=== PATIENT | male | born 1995 | race Caucasian/White ===

== ENCOUNTER 2017-03-04 19:31 | Emergency (ER) | payer OTHER ==
[2017-03-04 19:36] VITALS: RESP 16
[2017-03-04] MEDS ORDERED: ONDANSETRON 4 MG/2 ML VIAL IVP ONE (19:52)
[2017-03-04] MEDS ORDERED: NS 1,000 ML IV ONE (19:52)
--- NOTE | 2017-03-04 19:52 | EDPHY ---
H & P Stated Complaint: RLQ abd pain with emesis Time Seen by Provider: 03/04/17 19:51 HPI/ROS: CHIEF COMPLAINT: Abdominal pain, vomiting HISTORY OF PRESENT ILLNESS: The patient presents to the ED with progressively worsening right-sided abdominal pain for the past day. The patient reports that he had a fair amount of alcohol to drink last night. The patient denies prior history of abdominal pain. He denies prior history of abdominal surgery. He complains of moderate right mid and lower abdominal pain. The patient did have several episodes of vomiting today. He denies hematemesis or melena. The patient denies hematuria or dysuria. The patient reportedly did have a fall last night which resulted in a mild left knee injury. REVIEW OF SYSTEMS: A comprehensive 10 point review of systems is otherwise negative aside from elements mentioned in the history of present illness. Source: Patient - Personal History Current Tetanus/Diphtheria Vaccine: Yes Current Tetanus Diphtheria and Acellular Pertussis (TDAP): Yes - Medical/Surgical History Hx Asthma: No Hx Chronic Respiratory Disease: No Hx Diabetes: No Hx Cardiac Disease: No Hx Renal Disease: No Hx Cirrhosis: No Hx Alcoholism: No Hx HIV/AIDS: No Hx Splenectomy or Spleen Trauma: No Other PMH: N/A - Social History Smoking Status: Never smoked - Physical Exam Exam: General Appearance: Alert, mild discomfort Eyes: Pupils equal and round no pallor or injection ENT, Mouth: Mucous membranes moist Respiratory: There are no retractions, lungs are clear to auscultation Cardiovascular: Regular rate and rhythm Gastrointestinal: Tenderness to palpation right mid quadrant, right lower quadrant, right CVA tenderness Neurological: A&O, normal motor function, normal sensory exam, normal cranial nerves Skin: Warm and dry, no rashes Musculoskeletal: Neck is supple nontender Extremities: Tenderness to palpation left knee Psychiatric: Patient is oriented X 3, there is no agitation Constitutional: Initial Vital Signs Temperature (C) 36.3 C 03/04/17 19:35 Heart Rate 78 03/04/17 19:35 Respiratory Rate 16 03/04/17 19:35 Blood Pressure 126/85 H 03/04/17 19:35 O2 Sat (%) 97 03/04/17 19:35 O2 Delivery Mode Room Air Allergies/Adverse Reactions: No Known Allergies Allergy (Unverified 03/04/17 19:37) Home Medications: Medication Instructions Recorded NK [No Known Home Meds] 03/04/17 Medical Decision Making - Diagnostics Imaging Results: Imaging Impressions Knee X-Ray 03/04/17 20:05 Impression: Normal left knee series. Abdomen CT 03/04/17 21:10 Impression: 1. Mildly thickened appendix in the right upper iliac fossa in a retrocecal location. Findings are suggestive of early appendicitis. Clinical correlation recommended. 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 Findings discussed with Ralf Medina at 21:47 hour, 03/04/2017. ED Course/Re-evaluation: The patient presents to the ED with abdominal pain and vomiting in the setting of heavy alcohol use last night. The patient also sustained a minor left knee injury. The patient had an IV established. He received 2 L of normal saline. He received IV Zofran. The patient was noted to have mild tenderness on his exam. Given his leukocytosis a CT scan of the abdomen pelvis was obtained which demonstrates a appendix which is at the upper limit of normal at 8 mm. There is no periappendiceal stranding. The patient was re-evaluated in the emergency department over 2 hour period. At 10:20 p.m., the patient states he is feeling much better. His abdominal tenderness has markedly improved. The patient is tolerating p.o. and states that he is hungry. He is afebrile and in no acute distress. At this point time I clinical suspicion for acute appendicitis is low. I do not feel as if surgical indication is currently warranted. I do feel the patient can observe his symptoms for the next 8-12 hours for signs of progression. The patient is comfortable with this plan. He does understand that we have not fully exclude the diagnosis of early appendicitis however it is felt to be clinically on likely. The patient will return to the emergency department tomorrow morning for any ongoing pain for a recheck. He will return sooner for any worsening symptoms, fever, uncontrolled vomiting or other concerns. Differential Diagnosis: Differential diagnosis considered includes alcoholic gastritis, dehydration, vomiting, metabolic abnormality, renal failure, appendicitis, nephrolithiasis, knee fracture - Data Points Laboratory Results: Laboratory Results 03/04/17 19:50 03/04/17 19:50 03/04/17 03/04/17 19:50 19:50 WBC 13.95 10^3/uL H 10^3/uL (3.80-9.50) RBC 5.54 10^6/uL 10^6/uL (4.40-6.38) Hgb 17.7 g/dL H g/dL (13.7-17.5) Hct 49.2 % % (40.0-51.0) MCV 88.8 fL fL (81.5-99.8) MCH 31.9 pg pg (27.9-34.1) MCHC 36.0 g/dL g/dL (32.4-36.7) RDW 12.6 % % (11.5-15.2) Plt Count 313 10^3/uL 10^3/uL (150-400) MPV 10.7 fL fL (8.7-11.7) Neut % (Auto) 77.3 % H % (39.3-74.2) Lymph % (Auto) 14.3 % L % (15.0-45.0) [place] % (Auto) 7.0 % % (4.5-13.0) Eos % (Auto) 0.6 % % (0.6-7.6) Baso % (Auto) 0.4 % % (0.3-1.7) Nucleat RBC Rel Count 0.0 % % (0.0-0.2) Absolute Neuts (auto) 10.77 10^3/uL H 10^3/uL (1.70-6.50) Absolute Lymphs (auto) 2.00 10^3/uL 10^3/uL (1.00-3.00) Absolute Monos (auto) 0.98 10^3/uL H 10^3/uL (0.30-0.80) Absolute Eos (auto) 0.08 10^3/uL 10^3/uL (0.03-0.40) Absolute Basos (auto) 0.06 10^3/uL 10^3/uL (0.02-0.10) Absolute Nucleated RBC 0.00 10^3/uL 10^3/uL (0-0.01) Immature Gran % 0.4 % % (0.0-1.1) Immature Gran # 0.06 10^3/uL 10^3/uL (0.00-0.10) Sodium 141 mEq/L mEq/L (134-144) Potassium 4.5 mEq/L mEq/L (3.5-5.2) Chloride 102 mEq/L mEq/L (97-110) Carbon Dioxide 24 mEq/l mEq/l (22-31) Anion Gap 15 mEq/L mEq/L (8-16) BUN 14 mg/dL mg/dL (7-23) Creatinine 1.1 mg/dL mg/dL (0.7-1.3) Estimated GFR > 60 Glucose 86 mg/dL mg/dL (70-100) Calcium 10.3 mg/dL mg/dL (8.5-10.4) Total Bilirubin 0.6 mg/dL mg/dL (0.1-1.4) Conjugated Bilirubin 0.2 mg/dL mg/dL (0.0-0.5) Unconjugated Bilirubin 0.4 mg/dL mg/dL (0.0-1.1) AST 46 IU/L IU/L (17-59) ALT 55 IU/L IU/L (21-72) Alkaline Phosphatase 82 IU/L IU/L (38-126) Total Protein 8.4 g/dL H g/dL (6.3-8.2) Albumin 5.2 g/dL H g/dL (3.5-5.0) Lipase 55 IU/L IU/L (23-300) Medications Given: Discontinued Medications Sodium Chloride (Ns) 1,000 mls @ 0 mls/hr IV EDNOW ONE; Wide Open PRN Reason: Protocol Stop: 03/04/17 19:53 Last Admin: 03/04/17 20:02 Dose: 1,000 mls Ondansetron HCl (Zofran) 4 mg IVP EDNOW ONE Stop: 03/04/17 19:53 Last Admin: 03/04/17 20:05 Dose: 4 mg Departure - Departure Disposition: Home, Routine, Self-Care Clinical Impression: Abdominal pain, Vomiting Condition: Good Instructions: Abdominal Pain (ED) Additional Instructions: 1. Please return to the emergency department in 8-12 hours for recheck for any pain. Please return to the emergency department sooner for worsening pain, fever, recurrent vomiting or other concerns. As we discussed in the emergency department, your CT scan does demonstrate a slightly enlarged appendix however your clinical examination is not consistent with appendicitis at this point time. Because appendicitis can be difficult to diagnose early in its course it is imperative you return to the ED for any worsening symptoms or for any ongoing symptoms at 8-12 hours for recheck. 2. Zofran as needed for nausea
[2017-03-04 20:14] LABS: PLATELET COUNT 313 10^3/uL (150-400)
[2017-03-04] MEDS ORDERED: IOPAMIDOL (ISOVUE-300) 100 ML BTL ONE (21:16)
[2017-03-04] MEDS ORDERED: ONDANSETRON 4MG PREPACK#2 BTL TAKEHOME ONE (22:24)
[2017-03-04 22:36] VITALS: BP 123/72; PULSE 73; TEMP 98.2; O2SAT 97
== END 2017-03-04 22:38 | disposition home or self-care (01) ==
DX: R11.10 Vomiting, unspecified (principal); R10.31 Right lower quadrant pain; E86.9 Volume depletion, unspecified
CPT/HCPCS: 96374; J2405; Q9967

== ENCOUNTER 2017-05-31 23:53 | Emergency (ER) | payer OTHER ==
[2017-06-01 00:08] VITALS: BP 118/85; PULSE 87; RESP 16; TEMP 98.2; O2SAT 97
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
== END 2017-06-01 00:47 | disposition home or self-care (01) ==
PROC: 0HQ1XZZ Repair Face Skin, External Approach (ICD-10-PCS; principal; 2017-05-31)
DX: S01.111A Laceration without foreign body of right eyelid and periocular area, initial encounter (principal); F17.200 Nicotine dependence, unspecified, uncomplicated; Y04.0XXA Assault by unarmed brawl or fight, initial encounter; Y92.89 Other specified places as the place of occurrence of the external cause; Y93.89 Activity, other specified